=== PATIENT | male | born 1955 | race Caucasian/White ===

== ENCOUNTER → 2016-10-23 | Outpatient (CLI) | payer BC ==
--- NOTE | 2016-10-23 16:13 | EKG ---
[address] [address] Measurements Intervals [place] Rate: 46 P: 71 KS: 164 QRS: 81 QRSD: 90 T: 65 QT: 453 QTc: 411 Interpretive Statements SINUS BRADYCARDIA No previous ECG available for comparison Electronically Signed On 10-23-16 16:13:53 MDT by Krishna Echeverria [email or web address]
[2016-10-23 16:27] LABS: BASOPHILS # (AUTO) 0.04 10*3/UL; BASOPHILS % (AUTO) 0.4 % (0-1); EOSINOPHILS # (AUTO) 0.28 10*3/UL; EOSINOPHILS % (AUTO) 3.1 % (0-8); HEMATOCRIT 41.5 % (42.0-52.0); HEMOGLOBIN 14.5 g/dL (14.0-18.0); LYMPHOCYTES # (AUTO) 3.54 10*3/uL; MEAN CORPUSCULAR HEMOGLOBIN 31.7 PG (27-31); MEAN CORPUSCULAR HGB CONC 34.9 g/dL (33-37); MEAN CORPUSCULAR VOLUME 90.8 FL (80-90); MEAN PLATELET VOLUME 8.9 FL (7.4-12.2); MONOCYTES # (AUTO) 0.57 10*3/UL (0.3-0.8); MONOCYTES % (AUTO) 6.4 % (5-15); NEUTROPHILS # (AUTO) 4.49 10*3/UL; NEUTROPHILS % (AUTO) 50.2 % (50-80); RED BLOOD COUNT 4.57 10^6/uL (4.70-6.10)
[2016-10-23 16:32] LABS: PLATELET MORPHOLOGY COMMENT NORMAL MORPHOLOGY (NORM); RBC MORPHOLOGY COMMENT NORMAL MORPHOLOGY (NORM); WBC MORPHOLOGY COMMENT NORMAL MORPHOLOGY (NORM)
[2016-10-23 16:42] LABS: BLOOD UREA NITROGEN 14 mg/dL (7-22); CALCIUM 8.8 mg/dL (8.7-10.7); EST GLOMERULAR FILTRATION > 60 (>60 ml/min/1.73m(2)); SERUM ALBUMIN 3.9 g/dL (3.5-4.8)
== END ==
LOC: MOB EKG 15:32
PROVIDERS: ATTEND Internal Medicine
DX: I95.1 Orthostatic hypotension (principal); R00.1 Bradycardia, unspecified; F17.200 Nicotine dependence, unspecified, uncomplicated
CPT/HCPCS: 36415; 80053; 85025; 93005; 93010

== ENCOUNTER → 2016-11-02 | Outpatient (CLI) | payer BC ==
--- NOTE | 2016-11-04 21:53 | DI ---
MRI LUMBAR SPINE SCAN WITHOUT IV CONTRAST, 11/02/2016 2:36 PM: Clinical History: Lumbosacral spondylosis with radiculopathy. Previous Exam: 04/13/2016. Technique: Sagittal and axial T2 weighted; sagittal T1 weighted and T2 STIR; and axial PD. The vertebral bodies are of normal height and size. There is moderate disc space narrowing at L2-3 th rough L4-5 with severe narrowing at L1-2 and L5-S1. All lumbar disc spaces show desiccation change. T he cord terminates at T12 and the conus medullaris is normal. The T11-12 disc space is normal. T12-L1 has a circumferentially bulging but not herniated disc without canal or neural foraminal stenosis. L 1-2 has a left anterolateral disc herniation but there is no canal or neural foraminal stenosis. The appearance of this disc herniation is unchanged from the prior exam. L2-3 has a mild circumferentiall y bulging but not herniated disc without canal or neural foraminal stenosis. L3-4 has a more prominen t circumferentially bulging but not herniated disc without canal or neural foraminal stenosis. L4-5 h as a circumferentially bulging but not herniated disc without canal stenosis. There is bilateral neur al foraminal stenosis and this appearance is unchanged from the prior exam. L5-S1 has a mild bulging but not herniated disc without canal or neural foraminal stenosis. Moderate degenerative arthritic ch anges are present in the apophyseal joints bilaterally at L4-5 and L5-S1. Readin. There is a bulging but not herniated disc without canal stenosis with bilateral neural foraminal stenosis at L4-5. The appearance is unchanged from the prior exam. 2. There is a left anterolateral disc herniation at L1-2. No canal or neural foraminal stenosis is n oted and this has not changed from the previous exam. 3. There are bulging but not herniated discs without canal or neural foraminal stenosis at T12-L1 th rough L3-4, and at L5-S1. 4. The T11-12 disc space is normal.
== END ==
LOC: MRI 14:32
PROVIDERS: ATTEND Neurological Surgery
DX: M47.27 Other spondylosis with radiculopathy, lumbosacral region (principal); M51.26 Other intervertebral disc displacement, lumbar region; M47.817 Spondylosis without myelopathy or radiculopathy, lumbosacral region
CPT/HCPCS: 72148